=== PATIENT | male | born 1995 | race Caucasian/White ===

== ENCOUNTER 2017-04-18 17:35 | Emergency (ER) | payer OTHER ==
[~2017-04-18] VITALS: Ht 188 cm; Wt 122.2 kg
[2017-04-18] MEDS ORDERED: KEFLEX500 MG PO (18:38)
[2017-04-18 19:04] VITALS: BP 160/96
== END 2017-04-18 19:04 | disposition home or self-care (01) ==
LOC: EME 17:35
PROC: 0HQGXZZ Repair Left Hand Skin, External Approach (ICD-10-PCS; principal; 2017-04-18)
DX: S61.012A Laceration without foreign body of left thumb without damage to nail, initial encounter (principal); W26.8XXA Contact with other sharp object(s), not elsewhere classified, initial encounter
CPT/HCPCS: 99281; 99283